=== PATIENT | female | born 2000 | race Caucasian/White ===

== ENCOUNTER 2018-04-16 11:56 | Emergency (ER) | payer OTHER ==
[~2018-04-16] VITALS: Ht 157.5 cm; Wt 63.5 kg
[~2018-04-16 11:56] MED LIST: NOHOMEMEDICATIONS; ONDANSETRON HCL4 M2 PO
[2018-04-16] MEDS ORDERED: CEFDINIR300 MG PO (12:07)
[2018-04-16] MEDS ORDERED: OSELB75 PO (12:07)
[2018-04-16 12:30] LABS: URINE BLOOD 2+ (Negative); URINE CLARITY CLEAR; URINE COLOR YELLOW; URINE GLUCOSE-RANDOM NEGATIVE (Negative); URINE KETONES TRACE (Negative); URINE LEUKOCYTES-REFLEX NEGATIVE (Negative); URINE NITRITE-REFLEX NEGATIVE (Negative); URINE PROTEIN TRACE (Negative); URINE SPECIFIC GRAVITY >= 1.030 (1.005-1.030)
[2018-04-16 12:33] LABS: ICTOTEST (BILI CONFIRMATORY) Negative (Negative); URINE BILIRUBIN 1+ (Negative)
[2018-04-16 12:38] LABS: SQUAMOUS 4-10 Moderate /LPF (0-3); URINE WBC-REFLEX 0-5 Rare /HPF (0-5)
[2018-04-16 12:39] LABS: BACTERIA-REFLEX 1-9 Few /HPF (None Seen); CASTS None Seen /LPF (None Seen); CRYSTALS None Seen /LPF (None Seen); MUCUS 0-3 Light strn/LPF (None Seen)
[2018-04-16 12:41] LABS: ABSOLUTE LYMPHOCYTES 1.5 thou/uL (0.8-5.3); ABSOLUTE MONOCYTES 0.4 thou/uL (0.0-1.2); ABSOLUTE NEUTROPHILS 1.6 thou/uL (1.6-8.1); BASOPHILS 0.9 %; EOSINOPHILS 0.9 %; HEMOGLOBIN 14.3 gm/dL (12.0-15.0); LYMPHOCYTES 42.3 %; MCH 31.5 pg (26.0-34.0); MCHC 34.9 g/dL (28.0-37.0); MCV 90.1 fL (80.0-100.0); MONOCYTES 10.2 %; MPV 8.5 fl. (7.2-11.1); NUCLEATED RBCS 0 /100WBC; PLATELET COUNT* 119 thou/uL (150-400); POLYS 45.7 %; RBC 4.55 mil/uL (4.20-5.00); RDW-CV 12.4 % (10.5-14.5); WBC 3.5 thou/uL (4.0-11.0)
[2018-04-16 12:47] LABS: CALCIUM 9.1 mg/dL (8.5-10.1); CREATININE 0.8 mg/dL (0.6-1.3); POTASSIUM 3.4 mmol/L (3.5-5.1)
[2018-04-16 12:52] LABS: TOTAL BILIRUBIN 1.8 mg/dL (<0.1-1.0); TOTAL PROTEIN 7.5 g/dL (6.4-8.2)
[2018-04-16 13:42] VITALS: BP 123/85
== END 2018-04-16 13:40 | disposition home or self-care (01) ==
LOC: M.ERS 11:56
PROVIDERS: Nurse Practitioner Family
DX: B34.9 Viral infection, unspecified (principal); T36.8X5A Adverse effect of other systemic antibiotics, initial encounter; Z88.0 Allergy status to penicillin; Y92.89 Other specified places as the place of occurrence of the external cause

== ENCOUNTER 2018-06-03 10:16 | Emergency (ER) | payer OTHER ==
[~2018-06-03] VITALS: Ht 157.5 cm; Wt 63.5 kg
[~2018-06-03 10:16] MED LIST changes: +CEFDINIR300 MG PO; +OSELB75 PO
[2018-06-03 10:25] VITALS: BP 131/77
[2018-06-03] MEDS ORDERED: MEDROLDOSEPACK PO (10:48)
== END 2018-06-03 10:58 | disposition home or self-care (01) ==
LOC: M.ERS 10:16
DX: L30.9 Dermatitis, unspecified (principal); Z88.1 Allergy status to other antibiotic agents; Z88.0 Allergy status to penicillin

== ENCOUNTER 2021-02-22 19:57 | Emergency (ER) | payer OTHER ==
[~2021-02-22] VITALS: Ht 157.5 cm; Wt 65.8 kg
[~2021-02-22 19:57] MED LIST changes: +MEDROLDOSEPACK PO
[2021-02-22] MEDS ORDERED: CYCLOBENZAPRINE5 MG PO (22:56)
[2021-02-22] MEDS ORDERED: IBU600 MG PO (22:56)
[2021-02-22 23:17] VITALS: BP 116/77
== END 2021-02-22 23:18 | disposition home or self-care (01) ==
LOC: M.ERS 19:57
DX: S13.4XXA Sprain of ligaments of cervical spine, initial encounter (principal); S29.012A Strain of muscle and tendon of back wall of thorax, initial encounter; Z88.1 Allergy status to other antibiotic agents; Z88.0 Allergy status to penicillin; V49.88XA Car occupant (driver) (passenger) injured in other specified transport accidents, initial encounter; Y93.89 Activity, other specified; Y92.413 State road as the place of occurrence of the external cause; Y99.9 Unspecified external cause status